=== PATIENT | male | born 1940 | race Caucasian/White ===

== ENCOUNTER 2021-02-01 09:54 | Emergency (ER) | payer MEDICARE ==
[2021-02-01] MEDS ORDERED: Diatrizoate Meglumine/Diatrizoate Sodium 37% 120 ML Bottle PEGTUBE ONE (10:27)
--- NOTE | 2021-02-01 11:09 | EDM.PDOC ---
ED HPI GENERAL MEDICAL PROBLEM - General Chief Complaint: Gastrointestinal Problem Stated Complaint: [facility] Time Seen by Provider: 02/01/21 10:04 Source of Information: Reports: EMS, [facility] Records History Limitations: Reports: Altered Mental Status - History of Present Illness INITIAL COMMENTS - FREE TEXT/NARRATIVE: The patient presents by [facility] for PEG tube coming out. The patient had that put in 2 weeks ago. His baseline is confused. He appears to not be in pain. The PEG tube appears to be in place. Onset: Sudden Duration: Hour(s): Improves with: Reports: None Worsens with: Reports: None Associated Symptoms: Reports: No Other Symptoms - Related Data Allergies Allergy/AdvReac Type Severity Reaction Status Date / Time prochlorperazine Allergy Cannot Verified 02/01/21 10:48 [From Compazine] Remember ED ROS GENERAL - Review of Systems Review Of Systems: See Below Constitutional: Reports: No Symptoms HEENT: Reports: No Symptoms Respiratory: Reports: No Symptoms Cardiovascular: Reports: No Symptoms Endocrine: Reports: No Symptoms GI/Abdominal: Reports: Other (PEG tube in place) : Reports: No Symptoms Musculoskeletal: Reports: No Symptoms ED EXAM, GI/ABD - Physical Exam Exam: See Below Exam Limited By: No Limitations General Appearance: Alert, No Apparent Distress Ears: Normal External Exam Nose: Normal Inspection Throat/Mouth: Normal Inspection Head: Atraumatic, Normocephalic Neck: Normal Inspection Respiratory/Chest: No Respiratory Distress GI/Abdominal Exam: Other (PEG tube is still in place. It does slide in and out but stops at the bouble) Course - Vital Signs Last Recorded V/S: Last Vital Signs Temp 98.3 F 02/01/21 10:01 Pulse 84 02/01/21 10:01 Resp 22 H 02/01/21 10:01 BP 134/81 02/01/21 10:01 Pulse Ox 98 02/01/21 10:01 - Orders/Labs/Meds Orders: Active Orders 24 hr Category Date Time Status Abdomen 1V Flat [CR] Stat Exams 02/01/21 10:27 Taken Meds: Medications Discontinued Medications Generic Name Dose Route Start Last Admin Trade Name Freq PRN Reason Stop Dose Admin Diatrizoate Meglum/Diatrizoate Sod 20 ml 02/01/21 10:27 02/01/21 10:46 Diatrizoate Meglumine/Diatrizoate Sodium 37% 120 Ml Bottle [id number] 02/01/21 10:28 20 ml ONETIME ONE Administration - Re-Assessments/Exams Free Text/Narrative Re-Assessment/Exam: 02/01/21 11:15 The PEG tube is in place. It slides in and out but it stops at the bubble. I will put some contrast in it and get an x-ray. 02/01/21 11:46 The x-ray shows placement. I will discharge him back. Departure - Departure Time of Disposition: 11:50 Disposition: Home, Self-Care 01 Condition: Good Clinical Impression: PEG tube malfunction - Discharge Information *PRESCRIPTION DRUG MONITORING PROGRAM REVIEWED*: Not Applicable *COPY OF PRESCRIPTION DRUG MONITORING REPORT IN PATIENT MABEL: Not Applicable Referrals: PCP,None [Primary Care Provider] - Forms: ED Department Discharge Additional Instructions: The PEG tube is in good position. I put contrast in it and x-ray confirmed placement. Please return if you have any more problems. Sepsis Event Note (ED) - Focused Exam Vital Signs: Vital Signs Temp Pulse Resp BP Pulse Ox 02/01/21 10:01 98.3 F 84 22 H 134/81 98 - My Orders Last 24 Hours: My Active Orders 02/01/21 10:27 Abdomen 1V Flat [CR] Stat - Assessment/Plan Last 24 Hours: My Active Orders 02/01/21 10:27 Abdomen 1V Flat [CR] Stat
--- NOTE | 2021-02-01 11:52 | CR ---
Abdomen: Supine view of the abdomen was obtained. Comparison: No prior abdominal imaging is available. Contrast appears to have been placed through a gastrostomy tube. Gastrostomy tube lies within the upper body of the stomach close to the fundus. Contrast is seen within the stomach as well as small bowel. Surgical clips are seen from prior cholecystectomy. Linear density is seen within both lung bases most likely representing scarring. Bowel gas pattern appears normal. No acute bony abnormality is seen. Incidental note of old right lower rib fracture which appears healed. Impression: 1. Contrast has been placed through a gastrostomy tube. Tip of tube lies within the upper body of the stomach close to the fundus. 2. Other findings which are chronic as described above. Diagnostic code #2
== END 2021-02-01 13:44 | disposition home or self-care (01) ==
LOC: JD.ED 09:54
DX: K94.23 Gastrostomy malfunction (principal); Z88.8 Allergy status to other drugs, medicaments and biological substances
CPT/HCPCS: 74018; 99283; Q9963

== ENCOUNTER 2021-03-03 12:05 | Emergency (ER) | payer MEDICARE ==
--- NOTE | 2021-03-03 12:48 | EDM.PDOC ---
ED HPI GENERAL MEDICAL PROBLEM - General Chief Complaint: General Stated Complaint: [facility] Time Seen by Provider: 03/03/21 12:44 Source of Information: Reports: EMS History Limitations: Reports: Physical Impairment - History of Present Illness INITIAL COMMENTS - FREE TEXT/NARRATIVE: Patient is a-year-old male who is now who was sent here from [facility] for possible problem with his gastric tube. Patient had had a large bowel movement after which they are getting no return from the gastric tube. Patient is completely nonverbal but does not appear to be in any distress. He is known to pull on the end of the gastric tube. There is no bleeding anywhere associated with this tube. Again patient is completely nonresponsive as well as being nonverbal. Duration: Resolved Prior to Arrival Location: Reports: Abdomen Improves with: Reports: None Worsens with: Reports: None Associated Symptoms: Reports: No Other Symptoms - Related Data Allergies Allergy/AdvReac Type Severity Reaction Status Date / Time prochlorperazine Allergy Cannot Verified 03/03/21 12:49 [From Compazine] Remember Past Medical History HEENT History: Reports: Hard of Hearing, Macular Degeneration Other HEENT History: dysphagia Cardiovascular History: Reports: Cardiomyopathy, Other (See Below) Other Cardiovascular History: hyperlipidemia, artherosclerosis, cardiomegaly Respiratory History: Reports: Other (See Below) Other Respiratory History: pneumonitis Genitourinary History: Reports: Chronic Renal Insuffiency Neurological History: Reports: CVA, Other (See Below) Other Neuro History: Dementia Psychiatric History: Reports: Dementia Endocrine/Metabolic History: Reports: Diabetes, Type II - Infectious Disease History Infectious Disease History: Reports: Novel Coronavirus - Past Surgical History GI Surgical History: Reports: Cholecystectomy, Other (See Below) Other GI Surgeries/Procedures: PEG tube placement Social & Family History - Family History Family Medical History: No Pertinent Family History ED ROS GENERAL - Review of Systems Review Of Systems: Unable To Obtain (Patient is nonverbal and baseline unresponsive.) Reason Not Obtained: Nonverbal ED EXAM, GENERAL - Physical Exam Exam: See Below Exam Limited By: Other (Nonverbal and unresponsive at baseline.) General Appearance: No Apparent Distress Head: Atraumatic, Normocephalic Neck: Supple, Non-Tender Respiratory/Chest: No Respiratory Distress GI/Abdominal: Normal Bowel Sounds, Soft, Non-Tender Back Exam: Normal Inspection Extremities: Normal Inspection Neurological: Unresponsive Skin Exam: Warm, Dry Course - Vital Signs Last Recorded V/S: Last Vital Signs Temp 96.9 F 03/03/21 12:45 Pulse 87 03/03/21 12:45 Resp 18 03/03/21 12:45 BP 162/88 H 03/03/21 12:45 Pulse Ox 94 L 03/03/21 12:45 We were able to flush his gastric tube and there was output of bilious solution. Patient does not appear to have any pain or difficulty. We are attempting to figure a way to secure the tube better than it has been recently. We called to [facility] staff and they have no other concerns at this time. Departure - Departure Time of Disposition: 13:32 Disposition: DC/Tfer to Hospice - Home 50 Condition: Good Clinical Impression: PEG tube malfunction - Discharge Information Instructions: PEG Tube Home Guide, [id number] Referrals: Jagdish Stone MD [Primary Care Provider] - Forms: ED Department Discharge Additional Instructions: Follow-up with GI provider if there is still any concerns. Return to ER if symptoms are worse. Sepsis Event Note (ED) - Focused Exam Vital Signs: Vital Signs Temp Pulse Resp BP Pulse Ox 03/03/21 12:45 96.9 F 87 18 162/88 H 94 L
== END 2021-03-03 14:49 ==
LOC: JD.ED 12:05
DX: K94.23 Gastrostomy malfunction (principal); E78.5 Hyperlipidemia, unspecified; E11.9 Type 2 diabetes mellitus without complications; Z86.16 Personal history of COVID-19; Z88.1 Allergy status to other antibiotic agents
CPT/HCPCS: 99282

== ENCOUNTER 2021-03-31 12:55 | Emergency (ER) | payer MEDICARE, OTHER ==
[2021-03-31] MEDS ORDERED: Sodium Chloride 0.9% 10 ML Syringe FLUSH PRN (13:56)
[2021-03-31] MEDS ORDERED: Ondansetron 4 MG/2 ML SDV IVPUSH ONE (13:56)
[2021-03-31] MEDS ORDERED: Sodium Chloride 0.9% 1,000 ML IV SCH (14:00)
== END 2021-03-31 18:50 ==
LOC: JD.ED 12:55
DX: R11.10 Vomiting, unspecified (principal); E11.9 Type 2 diabetes mellitus without complications; Z88.8 Allergy status to other drugs, medicaments and biological substances; Z86.73 Personal history of transient ischemic attack (TIA), and cerebral infarction without residual deficits
CPT/HCPCS: 36415; 71045; 74019; 80053; 83690; 85025; 86140; 96374; 99284; J2405; J7030

== ENCOUNTER 2021-05-07 21:46 | Emergency (ER) | payer MEDICARE, OTHER | END 2021-05-08 02:00 | LOC: JD.ED 21:46 | DX: R09.02 Hypoxemia (principal); E87.1 Hypo-osmolality and hyponatremia; E11.22 Type 2 diabetes mellitus with diabetic chronic kidney disease; N18.9 Chronic kidney disease, unspecified; E78.5 Hyperlipidemia, unspecified; E78.00 Pure hypercholesterolemia, unspecified; Z88.8 Allergy status to other drugs, medicaments and biological substances; Z79.82 Long term (current) use of aspirin; Z79.899 Other long term (current) drug therapy; Z79.4 Long term (current) use of insulin | CPT/HCPCS: 36415; 71045; 71045-26; 80053; 85025; 99285; 99285-25 ==

== ENCOUNTER 2021-05-24 08:26 | Inpatient (IN) | payer MEDICARE, OTHER ==
[2021-05-24] MEDS ORDERED: Dextrose 5%-0.9% NaCl 1,000 ML IV SCH (09:00)
[2021-05-24] MEDS ORDERED: Sodium Chloride 0.9% 1,000 ML IV SCH (09:15)
[2021-05-24] MEDS ORDERED: Insulin Lispro 100 Unit/ML 3 ML KwikPen SUBCUT ONE (09:46)
[2021-05-24] MEDS ORDERED: Levofloxacin/Dextrose 5%-Water 750 MG in Premix Bag 1 BAG IV ONE (09:50)
[2021-05-24 10:22] LABS: CORONAVIRUS COVID-19 NAA NEGATIVE (NEGATIVE)
[2021-05-24] MEDS ORDERED: Furosemide 40 MG/4 ML VIAL IVPUSH ONE (10:48)
[2021-05-24] MEDS ORDERED: Sodium Polystyrene Sulfonate 15 GM/60 ML Susp 60 ML Bot PO ONE (10:50)
[2021-05-24] MEDS ORDERED: Acetaminophen 325 MG Tab PEGTUBE PRN (13:13)
[2021-05-24] MEDS ORDERED: Bisacodyl 10 MG Supp RECTAL PRN (13:13)
[2021-05-24] MEDS ORDERED: Polyethylene Glycol 3350 Powder 17 GM Packet PEGTUBE PRN (13:13)
[2021-05-24] MEDS: Heparin Sodium 5,000 Units/ML Vial SUBCUT SCH ×2 (15:48→21:54)
[2021-05-24] MEDS ORDERED: Insulin Regular, Human 100 Units/ML 3 ML Vial SUBCUT SCH (17:00)
[2021-05-24] MEDS: Meropenem 1 GM in Sodium Chloride 0.9% 100 ML IV SCH ×2 (17:06→23:46)
[2021-05-24] MEDS ORDERED: Non-Formulary Medication 1 Each (Potassium Chloride [Potassium Chloride] 20 MEQ Tablet.Er) PEGTUBE SCH (21:00)
[2021-05-24] MEDS: Timolol Maleate 0.5% Ophth Soln 5 ML Bottle EYEBOTH SCH (21:49)
[2021-05-24] MEDS: Brimonidine 0.2% Ophth Soln 5 ML Bottle EYEBOTH SCH (21:50)
[2021-05-24] MEDS: Latanoprost 0.005% Ophth Soln 2.5 ML Bottle EYEBOTH SCH (21:51)
[2021-05-24] MEDS: Clotrimazole 1% Crm 30 GM Tube TOP SCH (21:53)
[2021-05-24] MEDS: Carvedilol 12.5 MG Tab PEGTUBE SCH (21:54)
[2021-05-24] MEDS: Ticagrelor 90 MG Tab PO SCH (21:54)
[2021-05-24] MEDS: Melatonin 3 MG Tab GTUBE PRN (21:56)
[2021-05-25] MEDS: Heparin Sodium 5,000 Units/ML Vial SUBCUT SCH ×3 (05:06→21:35)
[2021-05-25] MEDS ORDERED: Omeprazole 20 MG Cap.CR PO SCH (06:00)
[2021-05-25] MEDS ORDERED: Insulin Glargine,Human Rec. Analog 100 Units/ML 3 ML Pen SUBCUT SCH (08:07)
[2021-05-25] MEDS: Insulin Glargine,Human Rec. Analog 100 Units/ML 3 ML Pen SUBCUT SCH (08:12)
[2021-05-25] MEDS: Saccharomyces Boulardii (Probiotic) 250 MG Cap PEGTUBE SCH (08:14)
[2021-05-25] MEDS: amLODIPine 10 MG Tab PEGTUBE SCH (08:14)
[2021-05-25] MEDS: Ascorbic Acid 500 MG Tab PEGTUBE SCH (08:14)
[2021-05-25] MEDS: Aspirin 81 MG Tab.Chew PEGTUBE SCH (08:15)
[2021-05-25] MEDS: Carvedilol 12.5 MG Tab PEGTUBE SCH ×2 (08:15→21:40)
[2021-05-25] MEDS: Omeprazole 20 MG Cap.CR PO SCH (08:15)
[2021-05-25] MEDS: Ticagrelor 90 MG Tab PO SCH ×2 (08:15→21:30)
[2021-05-25] MEDS: Multivitamins with Minerals/Folic Acid/Lutein/Zeaxanth Tab PO SCH (08:15)
[2021-05-25] MEDS: Magnesium Oxide 400 MG Tab GTUBE SCH (08:15)
[2021-05-25] MEDS: Cholecalciferol (Vitamin D3) 25 MCG Tab PEGTUBE SCH (08:15)
[2021-05-25] MEDS: Meropenem Premix 500 MG in Premix Bag 1 BAG IV SCH ×3 (08:42→21:32)
[2021-05-25] MEDS: Timolol Maleate 0.5% Ophth Soln 5 ML Bottle EYEBOTH SCH ×2 (08:43→21:33)
[2021-05-25] MEDS: Clotrimazole 1% Crm 30 GM Tube TOP SCH ×2 (08:44→21:36)
[2021-05-25] MEDS: Bacitracin Oint 15 GM Tube TOP SCH (08:47)
[2021-05-25] MEDS: Brimonidine 0.2% Ophth Soln 5 ML Bottle EYEBOTH SCH ×2 (08:48→21:34)
[2021-05-25] MEDS ORDERED: Ascorbic Acid 500 MG Tab PEGTUBE SCH (09:00)
[2021-05-25] MEDS ORDERED: Calcium Carbonate 500 MG Tab.Chew PEGTUBE SCH (09:00)
[2021-05-25] MEDS: Insulin Lispro 100 Unit/ML 3 ML KwikPen SUBCUT SCH ×3 (12:22→21:37)
[2021-05-25] MEDS ORDERED: Ondansetron 4 MG Tab.DIS PEGTUBE PRN (15:59)
[2021-05-25] MEDS ORDERED: Carvedilol 12.5 MG Tab PEGTUBE SCH (21:00)
[2021-05-25] MEDS: Latanoprost 0.005% Ophth Soln 2.5 ML Bottle EYEBOTH SCH (21:35)
[2021-05-26] MEDS: Melatonin 3 MG Tab GTUBE PRN (00:30)
[2021-05-26] MEDS ORDERED: traZODone 50 MG Tab PO PRN (00:58)
[2021-05-26] MEDS: Meropenem Premix 500 MG in Premix Bag 1 BAG IV SCH ×4 (01:19→15:05)
[2021-05-26] MEDS: Heparin Sodium 5,000 Units/ML Vial SUBCUT SCH ×3 (06:43→15:05)
[2021-05-26] MEDS: Omeprazole 20 MG Cap.CR PO SCH (06:43)
[2021-05-26] MEDS: Timolol Maleate 0.5% Ophth Soln 5 ML Bottle EYEBOTH SCH (08:37)
[2021-05-26] MEDS: Brimonidine 0.2% Ophth Soln 5 ML Bottle EYEBOTH SCH (08:37)
[2021-05-26] MEDS: Clotrimazole 1% Crm 30 GM Tube TOP SCH (08:39)
[2021-05-26] MEDS: Bacitracin Oint 15 GM Tube TOP SCH (08:39)
[2021-05-26] MEDS: Insulin Glargine,Human Rec. Analog 100 Units/ML 3 ML Pen SUBCUT SCH (08:39)
[2021-05-26] MEDS: Insulin Lispro 100 Unit/ML 3 ML KwikPen SUBCUT SCH ×3 (08:40→16:55)
[2021-05-26] MEDS: Ascorbic Acid 500 MG Tab PEGTUBE SCH (08:42)
[2021-05-26] MEDS: Magnesium Oxide 400 MG Tab GTUBE SCH (08:42)
[2021-05-26] MEDS: Multivitamins with Minerals/Folic Acid/Lutein/Zeaxanth Tab PO SCH (08:42)
[2021-05-26] MEDS: Aspirin 81 MG Tab.Chew PEGTUBE SCH (08:42)
[2021-05-26] MEDS: Cholecalciferol (Vitamin D3) 25 MCG Tab PEGTUBE SCH (08:42)
[2021-05-26] MEDS: Carvedilol 12.5 MG Tab PEGTUBE SCH (08:42)
[2021-05-26] MEDS: amLODIPine 10 MG Tab PEGTUBE SCH (08:42)
[2021-05-26] MEDS: Saccharomyces Boulardii (Probiotic) 250 MG Cap PEGTUBE SCH (08:43)
[2021-05-26] MEDS: Ticagrelor 90 MG Tab PO SCH (08:43)
[2021-05-26] MEDS ORDERED: Rosuvastatin 10 MG Tab FTUBE SCH (09:00)
[2021-05-26] MEDS ORDERED: Omeprazole 20 MG Cap.CR PO SCH (09:00)
[2021-05-27] MEDS ORDERED: Insulin Glargine,Human Rec. Analog 100 Units/ML 3 ML Pen SUBCUT SCH (09:00)
== END 2021-05-26 20:08 | disposition expired | DRG 177 ==
LOC: JD.ED 08:26 → JD.MS 11:30
PROVIDERS: ADMIT Emergency Medicine; ATTEND Internal Medicine
PROC: 0DH67UZ Insertion of Feeding Device into Stomach, Via Natural or Artificial Opening (ICD-10-PCS; principal; 2021-05-24)
PROC: XW033N5 Introduction of Meropenem-vaborbactam Anti-infective into Peripheral Vein, Percutaneous Approach, New Technology Group 5 (ICD-10-PCS; 2021-05-24)
DX: J69.0 Pneumonitis due to inhalation of food and vomit (principal); J96.21 Acute and chronic respiratory failure with hypoxia; R09.02 Hypoxemia; J96.22 Acute and chronic respiratory failure with hypercapnia; I42.9 Cardiomyopathy, unspecified; J44.0 Chronic obstructive pulmonary disease with (acute) lower respiratory infection; R13.10 Dysphagia, unspecified; E87.2 Acidosis; I13.0 Hypertensive heart and chronic kidney disease with heart failure and stage 1 through stage 4 chronic kidney disease, or unspecified chronic kidney disease; E87.1 Hypo-osmolality and hyponatremia; J18.9 Pneumonia, unspecified organism; I46.9 Cardiac arrest, cause unspecified; Z20.822 Contact with and (suspected) exposure to COVID-19; Z66 Do not resuscitate; Z51.5 Encounter for palliative care; E87.5 Hyperkalemia; G30.1 Alzheimer's disease with late onset; F02.80 Dementia in other diseases classified elsewhere, unspecified severity, without behavioral disturbance, psychotic disturbance, mood disturbance, and anxiety; R00.1 Bradycardia, unspecified; F03.90 Unspecified dementia, unspecified severity, without behavioral disturbance, psychotic disturbance, mood disturbance, and anxiety; H91.90 Unspecified hearing loss, unspecified ear; I25.10 Atherosclerotic heart disease of native coronary artery without angina pectoris; E78.00 Pure hypercholesterolemia, unspecified; R45.1 Restlessness and agitation; E78.5 Hyperlipidemia, unspecified; I50.9 Heart failure, unspecified; N18.9 Chronic kidney disease, unspecified; N40.0 Benign prostatic hyperplasia without lower urinary tract symptoms; E11.22 Type 2 diabetes mellitus with diabetic chronic kidney disease; H35.30 Unspecified macular degeneration; Z88.8 Allergy status to other drugs, medicaments and biological substances; Z79.82 Long term (current) use of aspirin; Z79.4 Long term (current) use of insulin; Z79.899 Other long term (current) drug therapy; I25.2 Old myocardial infarction; Z95.5 Presence of coronary angioplasty implant and graft; Z86.73 Personal history of transient ischemic attack (TIA), and cerebral infarction without residual deficits; Z86.16 Personal history of COVID-19; Z90.49 Acquired absence of other specified parts of digestive tract; Z93.1 Gastrostomy status; Z87.01 Personal history of pneumonia (recurrent)
CPT/HCPCS: 0240U; 36415; 36600; 71045; 71045-26; 80053; 81001; 82803; 82947; 83605; 83735; 83880; 84484; 85007; 85025; 85027; 85610; 85652; 85730; 86140; 87040; 87641; 93010; 94761; 96365; 96375; 97162-GP; 97530-GP; 99223; 99233; 99285; 99285-25; A9270-GY; J1644; J1815; J1815-GY; J1940; J1956; J2185; J7030